=== PATIENT | female | born 1970 | race Caucasian/White ===

== ENCOUNTER 2019-04-27 20:23 | Emergency (ER) | payer OTHER, SELFPAY ==
[2019-04-27 20:58] VITALS: BP 129/51; PULSE 90; RESP 18; TEMP 37.3; O2SAT 99
[2019-04-27 21:13] LABS: Basophils Absolute Auto 0.1 K/mm3 (0.0-0.1); Basophils Percent Auto 0.6 % (0.2-1.2); Eosinophils Percent Auto 0.4 % (0-4.4); Hematocrit 39.3 % (37.0-47.0); Immature Granulocyte Absolute 0.03 K/mm3 (0.00-0.031); Immature Granulocyte Percent A 0.4 % (0-0.5); Lymphocytes Absolute Auto 1.33 K/mm3 (0.9-3.2); Lymphocytes Percent Auto 16.2 % (18.3-44.2); Mean Corpuscular HGB Conc 33.1 g/dl (32-36); Mean Corpuscular Hemoglobin 30.7 pg (26-34); Mean Corpuscular Volume 92.9 fl (80-100); Mean Platelet Volume 10.1 fl (7.4-10.4); Monocytes Absolute Auto 0.4 K/mm3 (0.1-0.6); Neutrophils Absolute Auto 6.4 K/mm3 (1.3-6.7); Neutrophils Percent Auto 77.4 % (45.5-73.1); Platelet Count Result 233 k/mm3 (150-375); Red Blood Count 4.23 M/mm3 (4.2-5.4); Red Cell Distribution Width 12.5 % (11.5-14.5); White Blood Count 8.2 K/mm3 (4.5-10.0)
[2019-04-27 21:26] LABS: Alanine Aminotransferase 16 U/L (4-35); Albumin Level 4.7 g/dL (3.5-5.1); Alkaline Phosphatase 73 U/L (38-126); Aspartate Amino Transferase 32 U/L (14-36); Bilirubin,Total 0.7 mg/dL (0.2-1.3); Blood Urea Nitrogen 16 mg/dL (7-17); Calcium 10.2 mg/dL (8.4-10.2); Carbon Dioxide 23 mmol/L (22-30); Chloride 96 mmol/L (98-107); Estimated Glomerular Filt Rate > 60; Glucose 94 mg/dL (65-105); Lipase 112 U/L (23-300); Potassium 3.6 mmol/L (3.4-5.0); Sodium 133 mmol/L (137-145)
[2019-04-27 21:31] LABS: Add Urine Microscopic? YES; Appearance Urine Cloudy (Clear); Bacteria Urine Trace /hpf; Bilirubin Urine Negative (Negative); Blood Urine 2+ (Negative); Color Urine Yellow (Yellow); Glucose Urine UA Negative (Negative); Ketones Urine 1+ mg/dL (Negative); Leukocyte Esterase Ur Negative LEU/UL (Negative); Mucus Urine Rare /lpf; Nitrate Urine Negative (Negative); Protein Urine 1+ mg/dL (Negative); RBC Urine 21-50 /hpf (0-2); Specific Grav Ur 1.027 (1.001-1.035); Squamous Epithelial Cell Urine Many /hpf (Few); WBC Urine 0-3 /hpf
--- NOTE | 2019-04-27 21:48 | ED.NAVMDI ---
HPI - Nausea/Vomiting/Diarrhea General Chief complaint: Nausea/Vomiting/Diarrhea Stated complaint: N/V Time Seen by Provider: 04/27/19 21:44 Source: patient and RN notes reviewed Mode of arrival: other Limitations: no limitations History of Present Illness HPI Narrative: Pt is a 49 y/o female who presents to the ED with c/o nausea and vomiting bile that began 5-6 hours ago. Pt has tried Tums and Pedialyte, but has had no relief of her sx. Pt notes that she has had similar episodes. Pt has a hx of IBS. Pt notes that she has not been able to keep food or water down. Pt also reports resolved epigastric abdominal pain, chills, and fatigue, but denies diarrhea, fever, weakness, and lightheadedness. MD elicited complaint: nausea and vomiting Onset (ago): hour(s) (5-6) Description of vomiting: bilious Associated nausea: Yes Associated abdominal pain: No Location of pain: none Pain consistency: now resolved Associated symptoms: fever/chills and fatigue Related Data Allergies Allergy/AdvReac Type Severity Reaction Status Date / Time No Known Allergies Allergy Unverified 10/18/13 11:48 Review of Systems Review of Systems: All systems reviewed & are unremarkable except as noted in HPI and below Constitutional: Constitutional: Reports chills, Reports fatigue and Denies fever(s) Cardiovascular: Cardiovascular: Denies lightheadedness Gastrointestinal: Gastrointestinal: Reports abdominal pain (epigastric (resolved)), Denies diarrhea, Reports nausea and Reports vomiting Neurologic: Denies weakness PMFSH Past Medical History Medical History (Updated 04/27/19 @ 23:51 by Louis Goldstein MD) Anemia Anxiety Bronchitis Depression Ectopic Finger fracture, right right 5th finger Hyperlipidemia IBS (irritable bowel syndrome) Surgical History Surgical History (Updated 04/27/19 @ 23:51 by Maryann Rossi) History of tubal ligation Hx of cholecystectomy Hx of tonsillectomy Social History Social History (Updated 04/27/19 @ 23:51 by Maryann Rossi) Smoking packs per day: 0.5 Smoking cigarettes per day: 10.0 Smoking status: Current every day smoker Tobacco type: cigarettes Second hand tobacco smoke exposure: Yes Gender identity (if verbalized by the patient): Female Exam Const: General: healthy appearing and no acute distress Nutritional Appearance: thin HENMT: Mouth: Yes lip normal and Yes dry mucous membranes Eyes: Conjunctivae: conjunctivae normal Pupils: Equal, round and reactive pupils present Resp: Effort & Inspection: normal respiratory effort Cardio: Rate: regular rate Rhythm: regular rhythm GI: GI Palp: Yes Soft to palpation and No Tenderness to palpation present (GI) Auscultation: normal bowel sounds Back/Spine/Pelvis: Back: other (Full ROM) Skin: General skin exam: normal color, dry skin and other (warm) Neuro: General: patient oriented x3 and other (alert) Speech: normal speech Extrem: General: full ROM Psych: Mental Status: mental status grossly normal Affect: normal affect Course Vital Signs Vital signs: Vital Signs Temperature 37.3 C 04/27/19 20:58 Pulse Rate 90 04/27/19 20:58 Respiratory Rate 18 04/27/19 20:58 Blood Pressure 129/51 L 04/27/19 20:58 Pulse Oximetry 99 04/27/19 20:58 Temperature 37.3 C 04/27/19 20:58 Pulse Rate 82 04/28/19 00:37 Respiratory Rate 18 04/28/19 00:37 Blood Pressure 95/48 L 04/28/19 00:37 Pulse Oximetry 97 04/28/19 00:37 MDM - Nausea/Vomiting/Diarrhea MDM Narrative Medical decision making narrative: Feeling better after treatment. Tolerating PO and asking for discharge papers. Differential Diagnosis Differential diagnosis: Likely gastroenteritis and other (IBS) Medical Records Attestation: I reviewed the patient's medical records. Lab Data Attestation: I reviewed the patient's lab results. Result diagrams: 04/27/19 21:03 04/27/19 21:03 Labs: Lab Results
[2019-04-27] MEDS: SODIUM CHLORIDE 0.9% IV 1,000 ML 999 ML IV CONT (22:16)
[2019-04-27] MEDS: ONDANSETRON INJ 4 MG/2 ML VIAL IV PUSH (22:17)
[2019-04-27] MEDS: PANTOPRAZOLE SODIUM IV 40 MG VIAL IV PUSH (22:18)
[2019-04-27 23:43] VITALS: BP 97/48; PULSE 80; RESP 18; O2SAT 96
--- NOTE | 2019-04-27 23:44 | PC.NURSE ---
pt given crackers and water for po challenge per md verbal orders. pt instructed to use call light if she begins to get nauseated/vomiting.
[2019-04-28 00:37] VITALS: BP 95/48; PULSE 82; RESP 18; O2SAT 97
== END 2019-04-28 00:39 | disposition home or self-care (01) ==
PROVIDERS: Emergency Medicine; Emergency Provider Emergency Medicine
DX: R11.2 Nausea with vomiting, unspecified (principal); F17.210 Nicotine dependence, cigarettes, uncomplicated; E78.5 Hyperlipidemia, unspecified; K58.9 Irritable bowel syndrome, unspecified; Z86.2 Personal history of diseases of the blood and blood-forming organs and certain disorders involving the immune mechanism
CPT/HCPCS: 36415; 80053; 81001; 81025; 83690; 85025; 96361; 96374; 96375; 99284; C9113; J2405; J7030

== ENCOUNTER 2023-08-28 11:56 | Emergency (ER) | payer OTHER, SELFPAY ==
--- NOTE | ~2023-08-28 | XR_ITS ---
EXAMINATION: XR chest 1V portable 08/28/2023 12:28 INDICATION: Cough PROCEDURE: AP portable chest COMPARISON: 04/20/2018 FINDINGS: The lungs are clear. The cardiomediastinal silhouette is within normal limits. There are no pleural effusions. There is no pneumothorax suspected. Healed right sixth rib fracture. IMPRESSION: 1: NO ACUTE CARDIOPULMONARY DISEASE. Reviewed, dictated and finalized at location B.
[2023-08-28 12:06] VITALS: BP 105/57; PULSE 85; RESP 20; TEMP 36.5; O2SAT 100
--- NOTE | 2023-08-28 12:20 | ED.URI ---
HPI - URI/Sore Throat General Chief Complaint: Upper Respiratory Infection Stated Complaint: uri Time Seen by Provider: 08/28/23 12:03 History of Present Illness HPI Narrative: Patient with URI 3wk ago s/p abx, steroids, still coughing and feeling tired, some diarrhea 2d ago. Related Data Home Medications Medication Instructions Recorded Confirmed albuterol sulfate 90 mcg/actuation 1 puff inhalation Q4H PRN 09/08/21 09/14/22 aerosol inhaler atorvastatin 10 mg tablet 10 mg PO DAILY 09/08/21 09/14/22 pantoprazole 20 mg tablet,delayed 20 mg PO QAM 09/08/21 09/14/22 release Allergies Allergy/AdvReac Type Severity Reaction Status Date / Time codeine Allergy Intermediate Gastrointestinal Verified 09/14/22 09:12 Upset Review of Systems Review of Systems: All systems reviewed & are unremarkable except as noted in HPI and below PMFSH Past Medical History Medical History Abnormal Pap smear of cervix 98 lgsil, mild dysplasia, CINI -Encompassing HPV, - hgsil, CIS/ASHLEE 2 & ASHLEE 3, 12/23/99 hgsil, lgsil, slight dysplasia, 03/28 hgsil, ASHLEE III, 01/26 lgsil, mild dysplasia r/o hgsil Anemia Anxiety Asthma Bronchitis COPD (chronic obstructive pulmonary disease) Depression Ectopic Ectopic , tubal (~06/24/11) Finger fracture, right right 5th finger Hyperlipidemia IBS (irritable bowel syndrome) Incontinence Screening mammogram, encounter for Vaginal after () (~2000) Surgical History Surgical History History of colposcopy with cervical biopsy 11/16/99 ASHLEE II-II 04/08/00 ASHLEE I 02/04/01 benign 05/18/01 ECC--normal History of endoscopy History of tubal ligation (06/24/11) lscope tubal ligation/ectopic rt tube Hx of cholecystectomy (02/02/96) Hx of tonsillectomy Family History Family History Mother Diabetes mellitus Cerebrovascular accident Osteoporosis Sibling Diabetes mellitus sister Heart disease sister Other Diabetes mellitus aunt Breast cancer maternal aunt Malignant carcinoid tumor of lung maternal aunt Social History Social History (Updated 09/14/22 @ 09:15 by Mare Hernandez [facility]) Smoking packs per day: 0.5 Smoking cigarettes per day: 10.0 Smoking status: Current every day smoker Tobacco type: cigarettes Second hand tobacco smoke exposure: Yes Alcohol intake: never Substance use: never Substance use type: does not use Lack of Transportation: No Lack of Food: Never True Current Housing: I Have Housing Concerned About Future Housing: No Difficulty Paying Gas/Electric Bills: No Difficulty Paying for Meds: No Currently Unemployed: No Education: High School Diploma/GED Difficulty w/ Childcare or Family Care: No Living arrangements: other Additional living arrangements comments: Occupation/Education: occupation 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 EYES: EOMI, conjunctiva normal ENT: Hearing grossly intact LUNGS: Nonlabored breathing. wheezing bilateral lung mathis HEART: [Regular rate and rhythm] ABD: [Soft], [nontender to palpation] EXT: Normal range of motion SKIN: [No rashes or lesions.] NEURO: [Alert and oriented x 3. No gross focal sensory or strength deficits.] PSYCH: Normal affect Course Vital Signs Vital signs: Vital Signs Temperature 97.7 F 08/28/23 12:06 Pulse Rate 85 08/28/23 12:06 Respir
[2023-08-28] MEDS: predniSONE 20 MG TABLET 40 MG PO (12:30)
[2023-08-28 12:31] VITALS: O2SAT 99
[2023-08-28] MEDS: IPRATROPIUM BR 0.02% INH SOLN 0.5 MG/2.5 ML VIAL 1 MG INHALATION (12:31)
[2023-08-28 12:32] VITALS: BP 109/76; PULSE 80; PULSE 84; RESP 20; O2SAT 99
[2023-08-28] MEDS: ALBUTEROL SULFATE NEB 2.5 MG/3 ML INH 15 MG INHALATION (12:32)
[2023-08-28 13:28] LABS: Influenza A QL RT-PCR Negative (Negative); Influenza B QL RT-PCR Negative (Negative); RSV RNA, RT-PCR Negative (Negative); SARS-CoV-2 RNA PCR Negative (Negative)
[2023-08-28 13:50] VITALS: PULSE 108; RESP 20
[2023-08-28 14:25] VITALS: BP 109/46; PULSE 99; RESP 16; TEMP 37; O2SAT 98
== END 2023-08-28 14:29 | disposition home or self-care (01) ==
PROVIDERS: Emergency Provider Emergency Medicine; PCP Nurse Practitioner
DX: J20.9 Acute bronchitis, unspecified (principal); Z20.822 Contact with and (suspected) exposure to COVID-19; J44.9 Chronic obstructive pulmonary disease, unspecified; E78.5 Hyperlipidemia, unspecified; K58.9 Irritable bowel syndrome, unspecified; Z86.2 Personal history of diseases of the blood and blood-forming organs and certain disorders involving the immune mechanism; Z90.49 Acquired absence of other specified parts of digestive tract
CPT/HCPCS: 71045; 87637; 94640; 99283; J7512

== ENCOUNTER 2023-10-03 01:27 | Day surgery (SDC) | payer OTHER, SELFPAY ==
[2023-09-20 13:40] VITALS: BMI 15.7
[2023-10-03 09:02] VITALS: BP 91/53; PULSE 109; RESP 18; TEMP 36.1; O2SAT 98
[2023-10-03] MEDS: LACTATED RINGERS 1,000 ML 150 ML IV CONT (09:10)
--- NOTE | 2023-10-03 09:27 | WPDANESEPPF ---
Anes - Initial Pre Proc Eval Procedure: Operation Date: 10/03/23 10:30 Proposed Procedures p Screening Colonoscopy - Crescencio Mason MD Date/Time: 10/03/23 09:27 Surgeon: Crescencio Mason MD Pre Op Diagnosis: Neoplasm screening Patient Data Age: 53 Gender: F Height: 1.57 m Weight: 36.1 kg Last Vital Signs Temp 97 F L 10/03/23 09:02 Pulse 109 H 10/03/23 09:02 Resp 18 10/03/23 09:02 BP 91/53 L 10/03/23 09:02 Pulse Ox 98 10/03/23 09:02 O2 Del Method Room Air 10/03/23 09:02 Allergies Allergy/AdvReac Type Severity Reaction Status Date / Time codeine Allergy Intermediate Gastrointestinal Verified 10/03/23 09:01 Upset Penicillins Allergy Unknown Other Verified 10/03/23 09:01 Home Medications Medication Instructions Recorded Confirmed Type albuterol sulfate 90 mcg/actuation 1 puff inhalation Q4H PRN 09/08/21 09/27/23 History aerosol inhaler Shortness Of Breath Or Wheezing atorvastatin 10 mg tablet 10 mg PO DAILY 09/08/21 09/27/23 History pantoprazole 20 mg tablet,delayed 20 mg PO QAM 09/08/21 09/27/23 History release estradiol-norethindrone acet 1 1 tablet PO DAILY #84 tabs 05/25/23 09/27/23 Rx mg-0.5 mg tablet (Activella) simethicone 125 mg capsule (Gas 125 mg PO DAILY PRN 09/27/23 09/27/23 History Relief Extra Strength) Patient hx anesthesia problems: none Family hx anesthesia problems: none Results Review: All pre-operative results and documents have been reviewed as part of the pre-operative evaluation. [facility] Past Medical History Medical History Abnormal Pap smear of cervix 98 lgsil, mild dysplasia, CINI -Encompassing HPV, - hgsil, CIS/ASHLEE 2 & ASHLEE 3, 12/23/99 hgsil, lgsil, slight dysplasia, 03/28 hgsil, ASHLEE III, 01/26 lgsil, mild dysplasia r/o hgsil Anemia Anxiety Asthma Bronchitis COPD (chronic obstructive pulmonary disease) Depression Ectopic Ectopic , tubal (~06/24/11) Finger fracture, right right 5th finger Hyperlipidemia IBS (irritable bowel syndrome) Incontinence Screening mammogram, encounter for Vaginal after () (~2000) Surgical History Surgical History History of colposcopy with cervical biopsy 11/16/99 ASHLEE II-II 04/08/00 ASHLEE I 02/04/01 benign 05/18/01 ECC--normal History of endoscopy History of tubal ligation (06/24/11) lscope tubal ligation/ectopic rt tube Hx of cholecystectomy (02/02/96) Hx of tonsillectomy Family History Family History Mother Diabetes mellitus Cerebrovascular accident Osteoporosis Sibling Diabetes mellitus sister Heart disease sister Other Diabetes mellitus aunt Breast cancer maternal aunt Malignant carcinoid tumor of lung maternal aunt Social History Social History (Updated 09/27/23 @ 09:22 by NORBERTO Storey) Smoking packs per day: 1 Smoking cigarettes per day: 20.0 Smoking status: Current every day smoker Tobacco type: cigarettes Second hand tobacco smoke exposure: Yes Alcohol intake: never Substance use: never Substance use type: does not use Do You Feel Safe in your Home?: Yes Lack of Transportation: No Lack of Food: Never True Current Housing: I Have Housing Concerned About Future Housing: No Difficulty Paying Gas/Electric Bills: No Difficulty Paying for Meds: No Currently Unemployed: No Education: High School Diploma/GED Difficulty w/ Childcare or Family Care: No Living arrangements: with family Additional living arrangements comments: Occupation/Education: occupation 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
--- NOTE | 2023-10-03 09:42 | PM.HPGS ---
History of Present Illness History of Present Illness Consent: Risks, benefits, and alternatives have been discussed and questions answered. Patient agrees to proceed with procedure. Chief complaint: Neoplasm screening Narrative: Soheila Kelly is a 53 year old female here for screening colonoscopy, she had one previously but does not remember how long ago. Review of Systems Review of Systems: All systems reviewed & are unremarkable except as noted in HPI and below PMFSH Past Medical History Medical History (Updated 10/03/23 @ 09:43 by Crescencio Mason MD) Abnormal Pap smear of cervix 98 lgsil, mild dysplasia, CINI -Encompassing HPV, - hgsil, CIS/ASHLEE 2 & ASHLEE 3, 12/23/99 hgsil, lgsil, slight dysplasia, 03/28 hgsil, ASHLEE III, 01/26 lgsil, mild dysplasia r/o hgsil Anemia Anxiety Asthma Bronchitis Colon cancer screening COPD (chronic obstructive pulmonary disease) Depression Ectopic Ectopic , tubal (~06/24/11) Finger fracture, right right 5th finger Hyperlipidemia IBS (irritable bowel syndrome) Incontinence Screening mammogram, encounter for Vaginal after () (~2000) Surgical History Surgical History History of colposcopy with cervical biopsy 11/16/99 ASHLEE II-II 04/08/00 ASHLEE I 02/04/01 benign 05/18/01 ECC--normal History of endoscopy History of tubal ligation (06/24/11) lscope tubal ligation/ectopic rt tube Hx of cholecystectomy (02/02/96) Hx of tonsillectomy Family History Family History Mother Diabetes mellitus Cerebrovascular accident Osteoporosis Sibling Diabetes mellitus sister Heart disease sister Other Diabetes mellitus aunt Breast cancer maternal aunt Malignant carcinoid tumor of lung maternal aunt Social History Social History (Updated 09/27/23 @ 09:22 by NORBERTO Storey) Smoking packs per day: 1 Smoking cigarettes per day: 20.0 Smoking status: Current every day smoker Tobacco type: cigarettes Second hand tobacco smoke exposure: Yes Alcohol intake: never Substance use: never Substance use type: does not use Do You Feel Safe in your Home?: Yes Lack of Transportation: No Lack of Food: Never True Current Housing: I Have Housing Concerned About Future Housing: No Difficulty Paying Gas/Electric Bills: No Difficulty Paying for Meds: No Currently Unemployed: No Education: High School Diploma/GED Difficulty w/ Childcare or Family Care: No Living arrangements: with family Additional living arrangements comments: Occupation/Education: occupation 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 Gender identity (if verbalized by the patient): Female Sexual Orientation (if Verbalized by the Patient): Straight or Heterosexual Spiritual care concerns: No Meds Home Medications and Allergies Home Medications Medication Instructions Recorded Confirmed Type albuterol sulfate 90 mcg/actuation 1 puff inhalation Q4H PRN 09/08/21 09/27/23 History aerosol inhaler Shortness Of Breath Or Wheezing atorvastatin 10 mg tablet 10 mg PO DAILY 09/08/21 09/27/23 History pantoprazole 20 mg tablet,delayed 20 mg PO QAM 09/08/21 09/27/23 History release estradiol-norethindrone acet 1 1 tablet PO DAILY #84 tabs 05/25/23 09/27/23 Rx mg-0.5 mg tablet (Activella) simethicone 125 mg capsule (Gas 125 mg PO DAILY PRN 09/27/23 09/27/23 History Relief Extra Strength) Allergies Allergy/AdvReac Type Severity Reaction Status Date / Time codeine Allergy Intermediate Gastrointestinal Verified 10/03/23 09:01 Upset Penicillins Allergy Unknown Other Verified 10/03/23 09:01 Vital Signs Vital Signs - 24 hr 10/03/23 09:02 Temperature 97 F L Pulse Rate 109 H Respiratory Rate 18 Blood Pressure 91/53 L P
[2023-10-03 10:02] VITALS: BP 77/41; PULSE 90; RESP 23; O2SAT 98
[2023-10-03 10:12] VITALS: BP 89/52; PULSE 80; RESP 16; O2SAT 99
[2023-10-03 10:22] VITALS: BP 99/57; PULSE 72; RESP 17; O2SAT 100
== END 2023-10-03 10:40 | disposition home or self-care (01) ==
PROVIDERS: PCP Nurse Practitioner; Visit Provider Internal Medicine Gastroenterology
PROC: 0DJD8ZZ Inspection of Lower Intestinal Tract, Via Natural or Artificial Opening Endoscopic (ICD-10-PCS; CPT 45378; principal; 2023-10-03 10:30)
DX: Z12.11 Encounter for screening for malignant neoplasm of colon (principal); D12.3 Benign neoplasm of transverse colon; D12.8 Benign neoplasm of rectum; K64.8 Other hemorrhoids; J44.9 Chronic obstructive pulmonary disease, unspecified; Z79.51 Long term (current) use of inhaled steroids; F17.210 Nicotine dependence, cigarettes, uncomplicated
CPT/HCPCS: 45385; 88305; J2704; J7120

== ENCOUNTER 2023-10-31 12:34 | Outpatient (CLI) | payer OTHER, SELFPAY ==
--- NOTE | 2023-10-31 14:35 | WPDSIXMINUTE ---
Six Minute Walk Procedure Procedure Performed Pulmonary Stress Test (6 min walk) Six Minute Walk Six Minute Walk: This is a 6 minute walk test. The test was performed and interpreted in accordance with the 2014 ERS/ATS task force guidelines. Findings: The patient's resting room air oxygen saturation measured by pulse oximetry was 96% and heart rate was 87 bpm. Patient ambulated for 335 meters and oxygen saturation remained 97 to 98%. Heart rate at the end of the study was 108 bpm. The patient did not qualify for supplemental oxygen at rest or with ambulation. There are no prior studies for comparison.
--- NOTE | 2023-10-31 14:36 | P.PCNPFT_ITS ---
PFT Procedure Performed PFT Procedure Performed Spirometry with Pre/Post Bronchodilator Plethysmography (Lung Vol) Diffusing Cap (DLCO) Flow Vol Loop PFT Interpretation This is a pulmonary function test with pre and post-bronchodilator spirometry, plethysmography and diffusing capacity. The test was performed and results interpreted in accordance with the 2019 and 2005 ATS/ERS Task Force guidelines respectively using the Global Lung Function Initiative-2012 reference equations. Patient demonstrated good effort and cooperation. Reproducibility criteria were met. The quality of the pre bronchodilator spirometry maneuver was Grade A and post bronchodilator spirometry maneuver was Grade A. Findings: Spirometry: There is decreased maximal expiratory airflow at all lung volumes with concave expiratory flow tracing. The contour the inspiratory flow tracing is normal. The pre bronchodilator FVC is 2.23 L, 71% predicted. The pre bronchodilator FEV1 is 1.18 L, 47% predicted. The pre bronchodilator FEV1: FVC ratio is 53%. The post bronchodilator FVC is 2.62 L, representing a 17% increase. The post bronchodilator FEV1 is 1.35 L, representing a 14% increase. The post bronchodilator FEV1: FVC ratio is 51%. Plethysmography: The total lung capacity is 5.10 L, 108% predicted. The funct ional residual capacity is 3.24 L, 123% predicted. The residual volume is 2.55 L, 148% predicted. The residual volume:Total lung capacity ratio is 50%. Diffusing capacity: The diffusing capacity unadjusted for hemoglobin and carboxyhemoglobin is 8.9, 41% predicted. The diffusing capacity adjusted for alveolar volume is 2.29, 49% predicted. Impression: There is a severe obstructive abnormality. There is significant improvement after inhaling a single dose of albuterol. The increase in residual volume to total lung volume ratio is consistent with hyperinflation from an obstructive abnormality. The diffusing capacity unadjusted for hemoglobin and carboxyhemoglobin is moderately decreased and remains moderately decreased when adjusted for alveolar volume. There are no prior studies for comparison
== END 2023-10-31 12:35 | disposition home or self-care (01) ==
PROVIDERS: PCP Nurse Practitioner; Visit Provider Physician Assistant
DX: J43.9 Emphysema, unspecified (principal); R06.09 Other forms of dyspnea; R94.2 Abnormal results of pulmonary function studies
CPT/HCPCS: 94060; 94618; 94726; 94729

== ENCOUNTER 2023-11-30 15:50 | Emergency (ER) | payer OTHER, SELFPAY ==
--- NOTE | ~2023-11-30 | XR_ITS ---
EXAMINATION: XR foot LT min 3V DATE: 11/30/2023 17:22 INDICATION: Left foot injury. Fall. TECHNIQUE: 3 views of left foot were obtained. COMPARISON: None. FINDINGS: There is a nondisplaced transverse fracture of base of fifth metatarsal. Joint spaces are n ormal. There is an enthesophyte of posterior aspect of calcaneal tuberosity. IMPRESSION: 1. Nondisplaced transverse fracture of base of fifth metatarsal. Reviewed, dictated and finalized at location A.
[2023-11-30 16:19] VITALS: BP 108/52; PULSE 97; RESP 20; TEMP 37.3; O2SAT 98
--- NOTE | 2023-11-30 17:53 | ED.GENADULT ---
HPI - General Adult General Chief complaint: Extremity Injury, Lower Stated complaint: L foot injury/pain Time Seen by Provider: 11/30/23 17:40 History of Present Illness HPI narrative: 53-year-old female present to the emergency department for evaluation for left foot pain. Patient reports she injured her foot at work earlier today. Patient denies any other pain or injury. Patient denies striking head denies any loss of consciousness. Related Data Home Medications Medication Instructions Recorded Confirmed atorvastatin 10 mg tablet 10 mg PO DAILY 09/08/21 10/18/23 pantoprazole 20 mg tablet,delayed 20 mg PO QAM 09/08/21 10/18/23 release simethicone 125 mg capsule (Gas 125 mg PO DAILY PRN 09/27/23 10/18/23 Relief Extra Strength) albuterol sulfate 2.5 mg/3 mL 2.5 mg inhalation Q6-8H PRN 10/18/23 10/18/23 (0.083 %) solution for nebulization Allergies Allergy/AdvReac Type Severity Reaction Status Date / Time codeine Allergy Intermediate Gastrointestinal Verified 10/18/23 14:46 Upset Penicillins Allergy Unknown Other Verified 10/18/23 14:46 Review of Systems Review of Systems: All systems reviewed & are unremarkable except as noted in HPI and below PMFSH Past Medical History Medical History (Updated 12/01/23 @ 00:00 by Nik Benson) Abnormal Pap smear of cervix 98 lgsil, mild dysplasia, CINI -Encompassing HPV, - hgsil, CIS/ASHLEE 2 & ASHLEE 3, 12/23/99 hgsil, lgsil, slight dysplasia, 03/28 hgsil, ASHLEE III, 01/26 lgsil, mild dysplasia r/o hgsil Anemia Anxiety Asthma Bronchitis Colon cancer screening COPD (chronic obstructive pulmonary disease) Depression Ectopic Ectopic , tubal (~06/24/11) Finger fracture, right right 5th finger Hyperlipidemia IBS (irritable bowel syndrome) Incontinence Screening mammogram, encounter for Vaginal after () (~2000) Surgical History Surgical History History of colposcopy with cervical biopsy 11/16/99 ASHLEE II-II 04/08/00 ASHLEE I 02/04/01 benign 05/18/01 ECC--normal History of endoscopy History of tubal ligation (06/24/11) lscope tubal ligation/ectopic rt tube Hx of cholecystectomy (02/02/96) Hx of tonsillectomy Family History Family History Mother Diabetes mellitus Cerebrovascular accident Osteoporosis Sibling Diabetes mellitus sister Heart disease sister Other Diabetes mellitus aunt Breast cancer maternal aunt Malignant carcinoid tumor of lung maternal aunt Social History Social History (Updated 10/18/23 @ 14:47 by Dorothy Jaime MA) Smoking packs per day: 0.75 Smoking cigarettes per day: 15.0 Smoking status: Current every day smoker Tobacco type: cigarettes Second hand tobacco smoke exposure: Yes Alcohol intake: never Substance use: never Substance use type: does not use Do You Feel Safe in your Home?: Yes Lack of Transportation: No Lack of Food: Never True Current Housing: I Have Housing Concerned About Future Housing: No Difficulty Paying Gas/Electric Bills: No Difficulty Paying for Meds: No Currently Unemployed: No Education: High School Diploma/GED Difficulty w/ Childcare or Family Care: No Living arrangements: with family Additional living arrangements comments: Occupation/Education: occupation 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 HEAD: normocephalic, atraumatic. EYES: PERRLA/EOMI, conjunctivae clear. NOSE: Normal no drainage EARS:TMS clear with good light reflex. THROAT: Pharynx clear, no exud
[2023-11-30] MEDS: CYCLOBENZAPRINE HCL 10 MG TABLET PO (18:00)
[2023-11-30] MEDS: HYDROcodone/acetaminophen (*CRX) 5-325 MG TABLET 1 TAB PO (18:01)
[2023-11-30 18:15] VITALS: BP 116/67; PULSE 93; RESP 14; TEMP 36.8; O2SAT 99
== END 2023-11-30 18:40 | disposition home or self-care (01) ==
LOC: ANHED 18:12
PROVIDERS: Emergency Provider Emergency Medicine; PCP Nurse Practitioner
DX: S92.352A Displaced fracture of fifth metatarsal bone, left foot, initial encounter for closed fracture (principal); T14.90XA Injury, unspecified, initial encounter; F41.9 Anxiety disorder, unspecified; E78.5 Hyperlipidemia, unspecified; J45.909 Unspecified asthma, uncomplicated; F17.210 Nicotine dependence, cigarettes, uncomplicated
CPT/HCPCS: 29515; 73630; 99284; A9270

== ENCOUNTER 2024-02-08 10:26 | Outpatient (CLI) | payer OTHER, SELFPAY ==
--- NOTE | ~2024-02-08 | XR_ITS ---
XR foot LT min 3V Ordering provider: NASIR Kaur History: . S92.355A - Nondisplaced fracture of fifth metatarsal bone... . Comparison: January 18, 2024 FINDINGS: BONES: Fracture at the base of the fifth metatarsal bone. No other fractures seen. JOINT SPACES: Normal. No tarsal coalition. SOFT TISSUES: Normal. IMPRESSION: Fracture at the base of the fifth metatarsal bone unchanged from previous examination. Reviewed, dictated and finalized at location A. STAYER IMPRESSION: Fracture at the base of the fifth metatarsal bone unchanged from previous exami [facility]
== END 2024-02-08 10:27 | disposition home or self-care (01) ==
PROVIDERS: PCP Nurse Practitioner; Visit Provider Physician Assistant Surgical
DX: S92.355D Nondisplaced fracture of fifth metatarsal bone, left foot, subsequent encounter for fracture with routine healing (principal); X58.XXXD Exposure to other specified factors, subsequent encounter
CPT/HCPCS: 73630

== ENCOUNTER 2024-10-03 14:51 | Outpatient (CLI) | payer OTHER, SELFPAY ==
--- NOTE | ~2024-10-03 | CT_ITS ---
CT Scan of the Chest without Contrast: Clinical Indication: Lung cancer screening, nicotine dependence Technique: Contiguous sections were acquired throughout the chest without intravenous contrast. Dose reduction technique was used on this scan by utilizing automated exposure control and iterative recon struction technique. The dose-length product (DLP) was 60.15 mGy-cm. Findings: There is no evidence of any significant mediastinal, hilar or axillary lymphadenopathy. The mediastin al soft tissues appear normal. There is no evidence of pleural or pericardial effusion. There is moderate to advanced emphysema. Calcified left upper lobe granuloma present. Images through the upper abdomen reveal no abnormalities. Impression: Lung RADS 1: Negative. 12 month follow-up screening CT advised. Reviewed, dictated and finalized at location . Impression: Lung RADS 1: Negative. 12 month follow-up screening CT advised.
--- OUTSIDE RECORDS SUMMARY | 2024-10-03 14:58 | XMS_ITS | Clinical Summary ---
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 This disclosure is being madepursuant to the Care Everywhere program and may not contain all information available regarding this patient. Last updated 17.[facility] [employer] Allergies No known active allergies Medications * Be aware that medications may not be up to date on this document. Alwaysverify current medications with the patient. simvastatin (ZOCOR) 10 MG tablet Take 10 mg by mouth at bedtime Active QVAR REDIHALER 80 MCG/ACT inhaler 5 01/19/2019 Active Albuterol Sulfate (PROAIR HFA IN) Active Social History Tobacco Use Types Packs/Day Years Used Date Smoking Tobacco: Every Day Cigarettes Smokeless Tobacco: Never Comments No Sex and Gender Information Value Date Recorded Sex Assigned at Not on file Legal Sex Female 10:12 AM STERILE PROC TECH Gender Identity Female 02/08/2019 12:25 PM STERILE PROC TECH Sexual Orientation Not on file Last Filed Vital Signs Vital Sign Reading Time Taken Comments Blood Pressure 98/62 02/08/2019 12:26 PM STERILE PROC TECH Pulse 89 02/08/2019 12:26 PM STERILE PROC TECH Temperature - - Respiratory Rate 16 02/08/2019 12:26 PM STERILE PROC TECH Oxygen Saturation 97% 02/08/2019 12:26 PM STERILE PROC TECH Inhaled Oxygen Concentration - - Weight 44.9 kg (99 lb) 02/08/2019 12:26 PM STERILE PROC TECH Height 157.5 cm (5' 2) 02/08/2019 12:26 PM STERILE PROC TECH Body Mass Index 18.11 02/08/2019 12:26 PM STERILE PROC TECH Plan of Treatment Health Maintenance Due Date Last Done Comments COLOGUARD (AGES 45-75) - COL ON CA SCREENING 1971 COLON MONITORING 1971 COLONOSCOPY - COLON CA SCREENING 1971 CT COLONOGRAPHY - COLON CA SCREENING 1971 Colorectal Cancer Screening 1971 FIT - COLON CA SCREENING 1971 FLEX SIG - COLON CA SCREENING 1971 MAMMOGRAM 1971 HIV SCREENING 1986 HEPATITIS C SCREENING 02/17/1989 DTAP/TDAP/TD VACCINES (1 - Tdap) 1990 HEPATITIS B VACCINE (1 of 3 - 19+ 3-dose series) 1990 PNEUMOCOCCAL VACCINE 50+ (1 of 2 - PCV) 1990 PAP SMEAR 02/23/1992 ZOSTER VACCINE (1 of 2) 2021 COVID-19 VACCINE (1 - 2023-2 5 season) 2023 DEPRESSION SCREENING 03/28/2024 INFLUENZA VACCINE (#1) 2024 12/16/2014 HIB VACCINE Aged Out No longer eligi ble based on patient's age to complete this topic HPV VACCINE Aged Out No longer eligi ble based on patient's age to complete this topic MENINGOCOCCAL (Group B) VACC INE SHARED DECISION-MAKING Aged Out No longer eligibl e based on patient's age to complete this topic MENINGOCOCCAL GROUPS A/C/Y/W VACCINE Aged Out No longer eligible b ased on patient's age to complete this topic Insurance [facility] * Guarantor: TALAT MARQUEZ Account Type Relation to Patient Date of Phone Billing Address Personal/Family [address] [place] [address] [employer]EL[employer] NO INSURANCE Member Subscriber Plan / Payer (Ef fective for All Dates) Name:Talat Marquez Member ID:Not on file Relation to Subscriber:Not on file Name:TALAT MARQUEZ Subscriber ID:Not on file Address: [address] [place] [phone] Payer ID:Not on file Group ID:Not on file Type:Self Pay Address: [place], [place] * Guarantor: TALAT MARQUEZ Account Type Relation to Patient Date of Phone Billing Address Personal/Family [address] [place] [address] [employer] SELF PA[employer] NO INSURANCE Member Subscriber Plan / Payer (Ef fective for All Dates) Name:Talat Marquez Member ID:Not on file Relation to Subscriber:Not on file Name:TALAT MARQUEZ Subscriber ID:Not on file Address: [address] [place], [place] [id number] Payer ID:Not on file Group ID:Not on file Type:Self Pay Address: [place], [place] * Guarantor: TALAT MARQUEZ Account Type Relation to Patient Date of Phone Billing Address Personal/Family [address] [place] [address] [employer] SELF PA[employer] NO INSURANCE Member Subscriber Plan / Payer (Ef fective for All Dates) Name:Talat Marquez Member ID:Not on file Relation to Subscriber:Not on file Name:TALAT MARQUEZ Subscriber ID:Not on file Address: [address] [place] [phone] Payer ID:Not on file Group ID:Not on file Type:Self Pay Address: [place], [place] Care Teams 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
--- OUTSIDE RECORDS SUMMARY | 2024-10-03 14:58 | XMS_ITS | Clinical Summary ---
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 Phone Unavailable Primary Care Provider Unavailabl e Social History Tobacco Use Types Packs/Day Years Used Date Smoking Tobacco: Never Assessed Comments Unknown Sex and Gender Information Value Date Recorded Sex Assigned at Not on file Legal Sex Female 8:26 PM CDT Gender Identity Not on file Sexual Orientation Not on file Plan of Treatment Health Maintenance Due Date Last Done Comments Cervical Cancer Screening Pa p Smear (Age 30 to 64) Every 3 Years 1971 Colorectal Cancer Screening Colonoscopy (10 Years) 1971 Annual Physical 1974 Hepatitis C 1989 DTaP, Tdap and Td Vaccines ( 1 - Tdap) 1990 Hepatitis B Vaccines (1 of 3 - 19+ 3-dose series) 1990 Cervical Cancer Screening Pa p with HPV Testing (Age 30 to 64) Every 5 Years 2001 Cervical Cancer Screening with HPV 2001 Mammogram Screening 2011 Pneumococcal Vaccine: 50+ Ye ars (1 of 1 - PCV) 2021 Zoster Vaccines (1 of 2) 2021 COVID-19 Vaccine (2023-2 5 season) 2023 Meningococcal B Vaccine Aged Out No l onger eligible based on patient's age to complete this topic Meningococcal Vaccine Aged Out No dheeraj cosmo eligible based on patient's age to complete this topic RSV Immunizations Under 20 Months Aged Out No longer eligible based on patient's age to complete this topic
== END 2024-10-03 14:52 | disposition home or self-care (01) ==
PROVIDERS: PCP Nurse Practitioner; Visit Provider Physician Assistant
DX: Z12.2 Encounter for screening for malignant neoplasm of respiratory organs (principal); Z87.891 Personal history of nicotine dependence
CPT/HCPCS: 71271